=== PATIENT | male | born 1955 | race Asian ===

== ENCOUNTER 2024-08-31 20:40 | Observation (INO) | payer OTHER, SELFPAY ==
[2024-08-31] VITALS (11 sets, daily range): BP systolic 98–130; BP diastolic 49–84; PULSE 66–74
[2024-08-31 14:28] LABS: ALT (SGPT) 20 U/L (0-50); AST (SGOT) 21 U/L (17-59); Albumin 4.1 g/dl (3.5-5.0); Alkaline Phosphatase 56 U/L (38-126); Blood Urea Nitrogen 20 mg/dl (9-20); Calcium 9.1 mg/dl (8.4-10.2); Carbon Dioxide 27 mmol/L (22-30); Chloride 102 mmol/L (98-107); Glucose 142 mg/dl (70-99); Potassium 4.2 mmol/L (3.5-5.1); Sodium 135 mmol/L (135-145); Total Bilirubin 0.6 mg/dl (0.2-1.3); Total Protein 6.6 g/dl (6.3-8.2); eGFR > 60.00
[2024-08-31 14:39] LABS: % Basophils 0.3 % (0-2); % Eosinophils 6.4 % (0-6); % Immature Granulocytes 0.7 % (0-0.5); % Lymphocytes 19.2 % (20.5-51.1); % Monocytes 3.7 % (1.7-9.3); % Neutrophils 69.7 % (42.2-75.2); Absolute Eosinophils 0.5 10^3/uL (0-0.7); Absolute Immature Granulocytes 0.1 10^3/uL (0-0.05); Absolute Lymphocytes 1.5 10^3/uL (1.2-3.4); Absolute Monocytes 0.3 10^3/uL (0.1-0.6); Absolute Neutrophils 5.3 10^3/uL (1.4-6.5); Hematocrit 36.7 % (39.0-52.0); Hemoglobin 12.7 g/dL (13.0-18.0); Mean Corp Hgb Conc. 34.6 g/dL (33.0-37.0); Mean Corpuscular Volume 98.1 fL (80.0-94.0); Mean Platelet Volume 10.2 fL (7.4-10.4); Nucleated Red Blood Cells % 0 % (-); Platelet Count 193 10^3/uL (130-400); Red Blood Cell Count 3.74 10^6/uL (4.70-6.10); Red Cell Dist. Width 12.6 % (11.5-14.5); White Blood Cell Count 7.6 10^3/uL (4.8-10.8)
[2024-08-31 14:41] LABS: Troponin I < 0.012 ng/ml
--- NOTE | 2024-08-31 17:55 | ED.GENMED ---
History of Present Illness
General
Chief Complaint: Dizziness
Source: patient and family
Exam Limitations: none
Time Seen by Provider: 08/31/24 17:10
Nursing documentation reviewed up to this point in time: agreed with
History of Present Illness
History of Present Illness:
pt is a 68 y/o M
h/o CAD, htn, smoker
here with son who is translating
romansh speaking
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
he also felt nauesated and vomited x 1
his son said he found out about noon that his dad was sick and helped get him here; pt needed assistnce walking bcuase he was so dizzy
he felt like his head was going 'bakc and forth'
he also felt like his stomahc was 'up higher in his chest' and he didn't feel right 'like his heart was empty' but when son was asked to clarify this, he didn't seem to think it translated into turkmen
it sounds like he wa slightheaded
he did not pass out, have pain in his chest or feel sob
pt jennings sa littl e sorenes in his upper back and neck for a few days; no trauma, no chiropractor
no recnet illness or nasal congestion
never had vertigo
denies diplopia or heaache
pt says while waiting he has felt much better; he can turn his head side to side and has minimal symptoms
Review of Systems
Review of Systems
Allergies reviewed?: Yes
All Other Systems: Not applicable
Phy Exam
Physical Exam
Physical Exam:
GENERAL: Alert , in no apparent distress
HEAD: NCAT
EYE: pupils equal and reactive, no nystagmus, no photophobia
NECK: Supple,full rom, nontender
ENT: o/p clr, mmm.
CARDIAC: Regular rate and rhythm . no edema
LUNGS: Clear breath sounds bilaterally, no acute respiratory distress, no wheezes/rales/rhonchi
ABDOMEN: Soft, without focal tenderness, no r/g, no cvat
NEUROLOGICAL: Alert and orientedx 4, cn intact, no facial asymmetry, 5/5 strength in UE/LE, sensation intact, romberg neg, ambulates without assistance, did not seem unsteady, neg pronator drift
SKIN: Warm and dry, skin intact.
MUSCULOSKELETAL: No edema, well perfused.
PSYCH: Normal and appropriate interaction.
BRITTANI HALLPIKE: NO SYPMTOMS WHILE ROTATING HEAD DOING BRITTANI HALLPIKE BUT THEN AFTER PT FELT SYPMTOMATIC MILDLY AND APPEARED TO HAVE SOME HORIZONTAL NYSTAGMUS
Course
Orders/Labs/Results
Orders:
Orders
08/31/24 13:45
EKG [Electrocardiogram (*1)] Urgent
Reason for Study: Vertigo / Dizzy
EKG- Treatment ONCE
08/31/24 14:01
Complete Blood Count/With Diff Urgent
Comprehensive Metabolic Panel Urgent
Troponin I Urgent
08/31/24 Dinner
Cholesterol Lowering
At Your Request: Limited Participation
08/31/24 17:50
CT Head & Neck Angio W/wo IV Urgent
Comment:
Reason For Exam: sudden severe dizziness, neck pain 11 am
Orthostatic VS- Treatment ONCE
0.9% Sodium Chloride 500 ml [Nss] 500 ml IV BOLUS
Meclizine [Antivert] 25 mg PO NOW STA
08/31/24 18:16
COVID-19 Antigen Urgent
Source: Nasal Swab
08/31/24 19:57
Admit/Transfer Patient As Directed
Co-Sign Provider:
Level of Care: Observation services
Assign to:: Telemetry
Physician / Group: hospitlaist
Diagnosis: dizziness
Reason for Telemetry: CVA/TIA
Date to Stop Telemetry: 09/03/24
Time to Stop Telemetry: 11:00
Code Status As Directed
Resuscitation Status: Full Code
PRN Pain Medication Management As Directed
May give lesser potent ordered pain med per pt: Yes
preference::
Protocol:: Medication orders for pain may be administered in a
manner that supports deferring to patient preference
when the pt is:
- Requesting an ordered lesser potent pain medication.
Least to most potent pain medications are defined
as: acetaminophen < NSAID < tramadol < opioids
(morphine, oxycodone, hydromorphone).
- Requesting a lesser dose of the same medication IF
ORDERED.
- Requesting a less intrusive route of administration
if both routes are prescribed by the provider (PO <
IV).
08/31/24 22:07
Acetaminophen [Tylenol/Feverall] 650 mg RECTAL Q4HPRN PRN
Acetaminophen [Tylenol] 650 mg PO Q4HPRN PRN
Meclizine [Antivert] 25 mg PO Q8HPRN PRN
08/31/24 22:07
Activity As Directed
Activity Level: With Assistance
NIH Stroke Scale As Directed
Directions: Per protocol
Comment: every shift and with any change in condition or mental status
Neurological Checks As Directed
Frequency: q4h
Additional Instructions:: q4h x 24h upon admission to the floor, then qshift & with any change in condition
and mental status
Vital Signs As Directed
Frequency: Per unit guidelines
Pt Eval And Treat Routine
Activity Level: With Assistance
DX Deep Vein Thrombosis Video Routine
09/01/24 04:48
Basic Metabolic Panel IN AM
Cardiovascular Evaluation IN AM
Glycohemoglobin (HgbA1c) IN AM
09/01/24 08:00
Clopidogrel Bisulfate [Plavix] 75 mg PO DAILY
Metoprolol [Lopressor] 25 mg PO BID
09/01/24 18:00
Atorvastatin [Lipitor] 40 mg PO QPM
Enoxaparin Sodium [Lovenox] 40 mg SC QPM
09/03/24 11:00
DC Protocol for Telemetry ONCE
Abnormal Lab Results
08/31/24
14:01
RBC 3.74 L 10^6/uL
(4.70-6.10)
Hgb 12.7 L g/dL
(13.0-18.0)
Hct 36.7 L %
(39.0-52.0)
MCV 98.1 H fL
(80.0-94.0)
MCH 34.0 H pg
(27.0-31.0)
Abs Immat Gran (auto) 0.1 H 10^3/uL
(0-0.05)
Immature Gran % 0.7 H %
(0-0.5)
Lymphocytes % 19.2 L %
(20.5-51.1)
Eosinophils % 6.4 H %
(0-6)
Glucose 142 H mg/dl
(70-99)
08/31/24 14:01
08/31/24 14:01
Vital Signs
Initial and Last Documented VS:
Initial Vital Signs
Temp Pulse Resp BP
36.3 C 64 18 108/67
08/31/24 13:47 08/31/24 13:47 08/31/24 13:47 08/31/24 13:47
Last Documented Vital Signs
Temp Pulse Resp BP Pulse Ox
37.1 C 66 15 116/75 92
09/01/24 15:39 09/01/24 16:31 09/01/24 16:31 09/01/24 13:59 09/01/24 16:00
MDM/Problems Addressed
Differential Diagnosis Includes:
dizziness, dissection, stroke, vertigo
MDM/Problems Addressed:
68 y/o M with h/o HI
here with dizziness and ataxia starting at 11 am today suddenly
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
couldn't walk according to son
no headache but some mild neck soreness
no neck adjustemtns
while waiting his sypmtoms lessoned but he still feels it standing up
no h/o vertigo
on exam well appearing
stable vitals
orthostatic neg
stands up and walks unassisted but very mildly unsteady
otherwise neuro intact
ekg nonischemic
labs reviewed, no acute findings
meclizine given and still pt feels off standing up
his BRITTANI HALLPIKE WAS NOT POSITIVE; afterward i saw a little nystagmus while he was looking straigh ahead;
pending CTa but d/w ed attednign, will admit for stroke w/u
*Critical Care Note
Total Time (30-74mins, 75-104mins- exclusive of procedures): Not Applicable
ED Attending Note
-
Portions of this chart may have been created with voice recognition software.� Occasional wrong word or��sound alike� substitutions may have occurred due to the inherent limitations of voice recognition software.
Discharge Plan
Departure
Patient Disposition: Admit
Date of Disposition: 08/31/24
Time of Disposition: 19:48
Admit to: Telemetry
Presentation/result/management discussed w/ accepting MD/DO: Hospitalist
Condition: Fair
Covid-19: Not Applicable
Discharge Problem:
Dizziness, Ataxia
Interventions
Interventions:
*Risk Screen - Suicide Last Done: 08/31/24 16:40
*General Assessment Last Done: 08/31/24 16:40
*Neglect/Abuse Screening Last Done: 08/31/24 16:40
*ED COVID-19 Vaccine History Last Done: 08/31/24 16:40
*Nursing Disposition Last Done: 09/01/24 01:54
ED- Neurological Assessment Last Done: 09/01/24 08:07
ED- Cardiac Assessment Last Done: 08/31/24 16:45
ED Swallowing Screen Last Done: 08/31/24 16:45
[2024-08-31] MEDS: NSS 500 IV (18:06)
[2024-08-31] MEDS: ANTIVERT 25 MG PO (18:06)
[2024-08-31 18:35] LABS: COVID-19 Antigen Negative (Negative)
--- NOTE | 2024-08-31 19:51 | HPS.HSE ---
Family Physician
-
Family Physician: NOT KNOW UNKNOWN - PT DOES
Chief Complaint
-
Dizziness
History of Present Illness
This is a 68-year-old Moldovan speaking male with past medical history of hypertension and CAD s/p IN but no stents or cabg, presents to the emergency department with acute episode of dizziness that started around 11 AM today.
Information obtained via family member. Patient reported that he was just walking around his house doing his chores when he suddenly felt very dizzy. He reported feeling that he was swaying left or right. He denies a spinning sensation. He was
not able to move secondary to dizziness. He was nauseous and had 1 small nonbloody and nonbilious emesis. He denied having any palpitations. He denied having lightheadedness. There was no syncopal episode. He denies any chest pain. He denies
any prior history of dizzy sensation. He has no recent cold or flulike illness. He denies any tinnitus or hearing loss. During this episode he denies having any double vision. He denies any headache. He denies any other focal neurological
deficits. He reports that in the past he has had some numbness of the bilateral fingertips. He also reports occasional spasms of the lower extremity. He has a prior history of low back injury status post lower back surgery.
In the emergency department he was afebrile with a temp of 97.3, blood pressure was 116/70 with a pulse of 66. ECG was normal sinus with a rate of 63 and incomplete right bundle. Troponin was negative. CBC was unremarkable. Likewise his
chemistries were unremarkable.
Medical History
Past Medical History
Past Medical History: Reports CAD and HTN
Past Surgical History: Reports Orthopedic (Low back surgery)
Social History
Tobacco: Smoker
Alcohol: None
Drug: None
Personal: Single
Living: With Family
Employment: Retired
Family History
Family History: Not pertinent
Allergies / Home Medications
Allergies reflects when Allergies were last updated in [facility].
Home Medications with original date entered in [facility]
Allergy/Medication List:
Allergies
Allergy/AdvReac Type Severity Reaction Status Date / Time
No Known Allergies Allergy Unverified 08/31/24 13:51
Review of Systems
-
History Source: Patient
Constitutional: Reports No Symptoms
EENT: Reports No Symptoms
Respiratory: Reports No Symptoms
Cardiac: Reports No Symptoms
Abdomen/GI: Reports No Symptoms
: Reports No Symptoms
Musculoskeletal: Reports No Symptoms
Skin: Reports No Symptoms
Neurological: Reports Dizzy
Endocrine: Reports No Symptoms
Hematologic/Lymphatic: Reports No Symptoms
Psych: Reports No Symptoms
Physical Exam
Vital Signs
Vital Signs
Temp Pulse Resp BP Pulse Ox
97.3 F 66 15 116/69 99
08/31/24 13:47 08/31/24 18:15 08/31/24 18:15 08/31/24 18:00 08/31/24 18:15
Physical Exam
General: Well Developed, Well Nourished, Comfortable and Conversant
HEENT: NormoCephalic, Anicteric and Moist mucous membranes
Respiratory: Clear
Cardiac: S1/S2 and Regular Rhythm
Breast: Deferred by me
GI: Non Tender, Non Distended and Normal Bowel Sounds
Rectal: Deferred by Provider
Genito-urinary: Deferred by me
Musculoskeletal: No Clubbing, No Cyanosis and No Edema
Skin: Warm
Neuro: AO x 3, No Motor Deficits, Cranial Nerves Intact and No Sensory Deficits
Hematologic/Lymphatic: No Lymphadenopathy
Psych: Calm
Laboratory Results
-
08/31/24 14:01
08/31/24 14:01
Laboratory Results
Total Bilirubin 0.6 mg/dl (0.2-1.3) 08/31/24 14:01
AST 21 U/L (17-59) 08/31/24 14:01
ALT 20 U/L (0-50) 08/31/24 14:01
Alkaline Phosphatase 56 U/L (38-126) 08/31/24 14:01
Troponin I < 0.012 ng/ml 08/31/24 14:01
Data Reviewed
-
Medical Tests (Nuc Med, Echo, EKG etc): Image Personally Visualized and interpreted
Lab Data: Labs Reviewed by me
Old Records: Reviewed
Impression/Plan
-
IMPRESSION:
68-year-old with history of CAD currently on Plavix statin and metoprolol presented emergency department with acute episode of dizziness that he describes as imbalance with swaying to the left and right without nystagmus on physical examination. He
is currently has marked improvement in symptoms. However when he walks he still has slight imbalance and feels slightly dizzy. Initial workup in the ED has been negative.
PLAN:
1. Dizziness - Suspect central vs peripheral vertigo. Negative orthostatic VS. Given these,will admit for CVA evaluation .
- admit to telemetry
- CT head and CT angio head and neck
- if negative, will get MRI in am
- continue plavix/statin for now
- cardiovascular testing in am
- echo in am
- meclizine prn
DVT PPX - lovenox sq
code status - full code
[2024-09-01] VITALS (14 sets, daily range): BP systolic 92–118; BP diastolic 52–78; PULSE 73–74
[2024-09-01 06:07] LABS: Blood Urea Nitrogen 15 mg/dl (9-20); Calcium 8.5 mg/dl (8.4-10.2); Carbon Dioxide 24 mmol/L (22-30); Chloride 106 mmol/L (98-107); Glucose 96 mg/dl (70-99); HDL Cholesterol 44 mg/dl; LDL Cholesterol, Calculated 69 mg/dl; Potassium 3.6 mmol/L (3.5-5.1); Sodium 139 mmol/L (135-145); Total Cholesterol 147 mg/dl (50-199); Triglyceride 171 mg/dl (10-149); Very Low Density Lipoprotein 34 mg/dl (0-30); eGFR > 60.00
[2024-09-01] MEDS: LOPRESSOR 25 MG PO (08:09)
[2024-09-01] MEDS: PLAVIX 75 MG PO (08:09)
--- NOTE | 2024-09-01 15:57 | W.PN.HOSP.TC ---
Addendum entered and electronically signed by Kalyan Ferrari MD 09/03/24 16:21:
[id number]
Addendum entered and electronically signed by Kalyan Ferrari MD 09/01/24 16:41:
#Brainstem stroke
� With evidence of trace right-sided weakness, vibration loss, loss of pin prick on the left
� Continue aspirin
� Load with Plavix, continue 21 days thereafter
� Increase statin to 20 mg Crestor
� Follow-up PCP outpatient
Addendum entered and electronically signed by Kalyan Ferrari MD 09/01/24 16:05:
#Most likely vasovagal pre-syncope
Original Note:
Today's Communication/Plan
-
meclizine prn
f/u pcp closely +/- ENT
Await final neuro recs - if no changes - can dc
home health on dc
Assessment / Plan
Assessment / Plan
Physical Exam
General: Well Developed, Well Nourished, Comfortable and Conversant
HEENT: NormoCephalic, Anicteric and Moist mucous membranes
Respiratory: Clear
Cardiac: S1/S2 and Regular Rhythm
Breast: Deferred by me
GI: Non Tender, Non Distended and Normal Bowel Sounds
Rectal: Deferred by Provider
Genito-urinary: Deferred by me
Musculoskeletal: No Clubbing, No Cyanosis and No Edema
Skin: Warm
Neuro: AO x 3, No Motor Deficits, Cranial Nerves Intact and No Sensory Deficits
Hematologic/Lymphatic: No Lymphadenopathy
Psych: Calm
68-year-old with history of CAD currently on asa, statin and metoprolol presented emergency department with acute episode of dizziness that he describes as imbalance with swaying to the left and right without nystagmus on physical examination. He
is currently has marked improvement in symptoms. However when he walks he still has slight imbalance and feels slightly dizzy. Initial workup in the ED has been negative.
PLAN:
1. Dizziness - Suspect central vs peripheral vertigo. Negative orthostatic VS.
-no evidence of cva on imaging
-PT/OT - home health
-Improved greatly
-ECHO with no gross abnormalities, no wall motion abnormalities, EF WNL
-Neuro consulted
-Can dc with close PCP f/u
-may consider ENT eval if continued issues
-can cont meclizine prn for now
DVT PPX - lovenox sq
code status - full code
More than 30 minutes spent in discharge including
Final examination of the patient
Summarizing hospital stay
Instructions for continuing care to all relevant caregivers
Preparation of discharge records, prescriptions, and referral forms
Total time spent (36 in minutes):
Anticipated Discharge: Today
Subjective/Interval History
-
Date of Service: September 01, 2024
dizziness improved
Objective Data
-
Labs:
Laboratory Results
09/01/24
04:48
Sodium 139
Potassium 3.6
Chloride 106
Carbon Dioxide 24
BUN 15
Creatinine 0.8
Glucose 96
Calcium 8.5
Vital Signs:
Vital Signs
Temp Pulse Resp BP Pulse Ox
98.7 F 81 21 116/75 96
09/01/24 15:39 09/01/24 14:00 09/01/24 14:00 09/01/24 13:59 09/01/24 15:43
Review of Systems
-
History Source: Patient
All other systems: Not reviewed unless documented
Data Reviewed
-
CT Scan: Report Reviewed by me
MRI: Report Reviewed by me
Medical Tests (Nuc Med, Echo etc): Report Reviewed by me
Labs: Labs Reviewed by me
--- NOTE | 2024-09-01 16:21 | CM ---
Patient is medically ready for discharge to home. Patient and grandson are agreeable to VN. Referral sent via [facility].
--- NOTE | 2024-09-01 16:42 | W.DS.TRANS ---
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
-
Discharge Instructions:
Discharge Diagnosis/Procedures vasovagal pre-syncope
Diet Low Cholesterol,Low Fat
Activity As tolerated
Blood Work cbc and cmp in 1 week with pcp
Instructions:
Stand-Alone Forms:
Changes to Home Medications: Yes
Discharge Medications:
DC Medications w/original date entered in [facility]
aspirin 81 mg tablet,delayed release 81 mg PO DAILY Blood Clot Prevention/Tx 08/31/24
cholecalciferol (vitamin D3) 50 mcg (2,000 unit) tablet (Vitamin D3) 50 mcg PO DAILY Supplement 08/31/24
icosapent ethyl 1 gram capsule (Vascepa) 1 g PO BID High Cholesterol 08/31/24
isosorbide mononitrate 30 mg tablet,extended release 24 hr 30 mg PO BID Heart Disease/Condition 08/31/24
metoprolol tartrate 25 mg tablet 25 mg PO DAILY Blood Pressure 08/31/24
ranolazine 1,000 mg tablet,extended release,12 hr 1,000 mg PO BID Heart Disease/Condition 08/31/24
clopidogrel 75 mg tablet (Plavix) 75 mg PO DAILY 21 days #21 tabs 09/01/24
rosuvastatin 10 mg tablet 20 mg (2 x 10 mg) PO DAILY High Cholesterol #60 tabs 09/01/24
Home Medication Changes
clopidogrel 75 mg tablet (Plavix) 75 mg PO DAILY 21 days #21 tabs 09/01/24
rosuvastatin 10 mg tablet 20 mg (2 x 10 mg) PO DAILY High Cholesterol #60 tabs 09/01/24
Pending Results: No
--- NOTE | 2024-09-01 16:42 | CON.NEURO ---
Neuro Assessment/Plan
Assessment
CTA head/neck no LVO, no significant plaque
MRI brain w/o contrast imgs and rept rev'd, minimal microvascular changes, no stroke
HDL 44, LDL 69
exam consistent with brainstem stroke as cause of his dizziness given trace right sided weakness and crossed sensory signs. probably left abhishek. too small to show up on brain MRI
Plan
ok to d/c home
continue ASA 81
load Plavix 300, then 75 mg x21 days
increase rosuvastatin 20 mg
Consultation
Order
Date of Consultation: 09/01/24
Requesting Provider:
Reason for Consult:
Subjective/Objective
Subjective Data
Date of Service: September 01, 2024
spoke to patient in central african, and to his son in Japanese
He is a 69 year old right handed man presenting with 1 day of dizziness, feeling like he is swaying like on a ship. by the time I saw him, the symptoms are resolved
denies speech changes, vision loss, weakness, numbness
Objective Data
Vital Signs
Temp Pulse Resp BP Pulse Ox
37.1 C 66 15 116/75 92
09/01/24 15:39 09/01/24 16:31 09/01/24 16:31 09/01/24 13:59 09/01/24 16:00
Lab Results
09/01/24 04:48
Sodium 139 mmol/L (135-145) 09/01/24 04:48
Potassium 3.6 mmol/L (3.5-5.1) 09/01/24 04:48
BUN 15 mg/dl (9-20) 09/01/24 04:48
Glucose 96 mg/dl (70-99) 09/01/24 04:48
Calcium 8.5 mg/dl (8.4-10.2) 09/01/24 04:48
LDL Cholesterol, Calc 69 mg/dl 09/01/24 04:48
Patient Allergies
No Known Allergies Allergy (Unverified 08/31/24 13:51)
Physical Exam
-
AAOx3 speech clear, language intact
VFF, EOMI, face symmetric
trace RUE weakness
trace RUE vib loss compared to left
decreased pin LLE
Medications
-
Active Medications
Generic Name Dose Route Start Last Admin
Trade Name Freq PRN Reason Stop Dose Admin
Acetaminophen 650 mg 08/31/24 22:07
Acetaminophen 650 Mg Rectal Suppository RECTAL 09/28/24 22:06
Q4HPRN PRN
KEITH, mild pain, or temp >100.4F
Acetaminophen 650 mg 08/31/24 22:07
Acetaminophen 325 Mg Tablet PO 09/28/24 22:06
Q4HPRN PRN
KEITH, mild pain, or temp >100.4F
Atorvastatin Calcium 40 mg 09/01/24 18:00
Atorvastatin (Lipitor) 40 Mg Tablet PO 09/29/24 17:59
QPM HONEY
Clopidogrel Bisulfate 75 mg 09/01/24 08:00 09/01/24 08:09
Clopidogrel 75 Mg Tablet PO 09/29/24 07:59 75 mg
DAILY HONEY Administration
Clopidogrel Bisulfate 300 mg 09/01/24 16:39
Clopidogrel 300 Mg Tablet PO 09/01/24 16:40
NOW STA
Enoxaparin Sodium 40 mg 09/01/24 18:00
Enoxaparin Sodium 40 Mg/0.4 Ml Syringe SC 09/29/24 17:59
QPM HONEY
Meclizine HCl 25 mg 08/31/24 22:07
Meclizine 25 Mg Tablet PO 09/28/24 22:06
Q8HPRN PRN
dizziness
Metoprolol Tartrate 25 mg 09/01/24 08:00 09/01/24 08:09
Metoprolol 25 Mg Regular Release Tablet PO 09/29/24 07:59 25 mg
BID HONEY Administration
Sodium Chloride 0 flush 08/31/24 22:00
Sodium Chloride 0.9% (Flush) Syringe IV 09/28/24 21:59
PER PROTOCOL HONEY
Home Medications
�Medication �Instructions �Recorded
aspirin 81 mg tablet,delayed 81 mg PO DAILY Blood Clot 08/31/24
release Prevention/Tx
cholecalciferol (vitamin D3) 50 50 mcg PO DAILY Supplement 08/31/24
mcg (2,000 unit) tablet (Vitamin
D3)
icosapent ethyl 1 gram capsule 1 g PO BID High Cholesterol 08/31/24
(Vascepa)
isosorbide mononitrate 30 mg 30 mg PO BID Heart 08/31/24
tablet,extended release 24 hr Disease/Condition
metoprolol tartrate 25 mg tablet 25 mg PO DAILY Blood Pressure 08/31/24
ranolazine 1,000 mg 1,000 mg PO BID Heart 08/31/24
tablet,extended release,12 hr Disease/Condition
clopidogrel 75 mg tablet (Plavix) 75 mg PO DAILY 21 days #21 tabs 09/01/24
rosuvastatin 10 mg tablet 20 mg (2 x 10 mg) PO DAILY High 09/01/24
Cholesterol #60 tabs
[2024-09-01 16:47] LABS: Hematocrit 36.8 % (39.0-52.0); Hemoglobin 12.4 g/dL (13.0-18.0); Mean Corp Hgb Conc. 33.7 g/dL (33.0-37.0); Mean Corpuscular Hgb 33.2 pg (27.0-31.0); Mean Corpuscular Volume 98.7 fL (80.0-94.0); Mean Platelet Volume 10.3 fL (7.4-10.4); Platelet Count 184 10^3/uL (130-400); Red Blood Cell Count 3.73 10^6/uL (4.70-6.10); Red Cell Dist. Width 12.6 % (11.5-14.5); White Blood Cell Count 5.8 10^3/uL (4.8-10.8)
[2024-09-01] MEDS: PLAVIX 225 MG PO (17:01)
[2024-09-01] MEDS: LIPITOR 40 MG PO (17:02)
[2024-09-01 17:04] LABS: Troponin I < 0.012 ng/ml
== END 2024-09-01 18:20 | disposition home health service (06) ==
LOC: ED 20:40
PROVIDERS: Emergency Medicine; Physician Assistant; ADMITTING PHYSICIAN Internal Medicine; ATTENDING PHYSICIAN Internal Medicine; CONSULT PHYSICIAN Psychiatry & Neurology Clinical Neurophysiology; EMERGENCY PHYSICIAN Emergency Medicine
DX: I63.9 Cerebral infarction, unspecified (principal); G81.91 Hemiplegia, unspecified affecting right dominant side; I25.10 Atherosclerotic heart disease of native coronary artery without angina pectoris; R27.0 Ataxia, unspecified; I10 Essential (primary) hypertension; F17.200 Nicotine dependence, unspecified, uncomplicated; R11.2 Nausea with vomiting, unspecified; H55.00 Unspecified nystagmus; I25.2 Old myocardial infarction; M47.812 Spondylosis without myelopathy or radiculopathy, cervical region; I45.10 Unspecified right bundle-branch block; I08.1 Rheumatic disorders of both mitral and tricuspid valves; I67.82 Cerebral ischemia; R53.1 Weakness; M54.2 Cervicalgia; Z79.02 Long term (current) use of antithrombotics/antiplatelets; Z79.82 Long term (current) use of aspirin; Z11.52 Encounter for screening for COVID-19
CPT/HCPCS: 70496; 70498; 70551; 80048; 80053; 80061; 83036; 84484; 85025; 85027; 87811; 93005; 93306; 96360; 99285; G0378; Q9967

== ENCOUNTER 2025-01-16 06:28 | Day surgery (SDC) | payer OTHER, SELFPAY | END 2025-01-16 11:44 | disposition home or self-care (01) | LOC: GI 06:28 | PROVIDERS: ATTENDING PHYSICIAN Internal Medicine Gastroenterology | DX: Z12.11 Encounter for screening for malignant neoplasm of colon (principal); R13.10 Dysphagia, unspecified; K22.89 Other specified disease of esophagus; K31.89 Other diseases of stomach and duodenum; D12.3 Benign neoplasm of transverse colon; D12.2 Benign neoplasm of ascending colon; D12.5 Benign neoplasm of sigmoid colon; K63.5 Polyp of colon; K22.70 Barrett's esophagus without dysplasia; Z86.0100 Personal history of colon polyps, unspecified | CPT/HCPCS: 45385; 45380; 43239; 88305; 88342 ==